=== PATIENT | male | born 1985 | race American Indian/Alaskan Native ===

== ENCOUNTER 2016-05-12 08:16 | Emergency (ER) | payer BC ==
[2016-05-12 08:51] VITALS: BP 138/90
[2016-05-12] MEDS ORDERED: NORCO 5/325 PO ONE (09:26)
--- NOTE | 2016-05-12 09:28 | XRay Report ---
Right hand 3 views: History: Injury. Findings: There is noted fracture neck of fifth metacarpal right hand. Also ossification noted adjacent to the ulnar aspect of proximal interphalangeal joint middle finger right hand probably related to old injury. Impression: Acute fracture neck of fifth metacarpal right hand. Additional findings as detailed above.
--- NOTE | 2016-05-12 10:37 | Emergency Department Report ---
HPI - General Chief Complaint: Extremity Injury, Upper Time Seen by Provider: 05/12/16 10:27 - HPI HPI: 30-year-old male presents to ED complaining of right hand pain times yesterday. Patient states he punched into a wall yesterday with his right hand. Patient states pain has gotten worse and some swelling noted on his right hand. Patient states pain is throbbing in constant in nature 8 out of 10 intensity pain. Patient able to move and no loss of sensation. Minimal swelling. Patient denies fevers/chills/nausea/vomiting/abdominal pain/chest pain/ shortness of breath/abdominal pain or any other problems. ED Past Medical Hx - Past Medical History Hx Hypertension: Yes Hx Arthritis: Yes Hx Psychiatric Treatment: Yes (ANXIETY) Additional medical history: High Cholesterol - Surgical History Additional Surgical History: T & A. BACK SURGERY L4/L5 - Social History Smoking Status: Former Smoker Substance Use Type: Alcohol, Prescribed - Medications Home Medications: Home Medications Medication Instructions Recorded Confirmed Last Taken Type ALPRAZolam [Xanax TAB] 1 mg PO BID PRN 05/12/16 05/12/16 05/12/16 07:00 History Gabapentin [Neurontin] 600 mg PO QPM 05/12/16 05/12/16 Unknown History Ibuprofen [Motrin] 800 mg PO Q8HR PRN #36 tablet 05/12/16 Unknown Rx Oxycodone HCl/Acetaminophen 1 each PO Q6HR PRN #20 tablet 05/12/16 Unknown Rx [Percocet 10/325 mg] ED Review of Systems ROS: Stated complaint: POSS R HAND FRACTURE Other details as noted in HPI Constitutional: denies: chills, fever Eyes: denies: eye pain, eye discharge, vision change ENT: denies: ear pain, throat pain Respiratory: denies: cough, shortness of breath, wheezing Cardiovascular: denies: chest pain, palpitations Endocrine: no symptoms reported Gastrointestinal: denies: abdominal pain, nausea, vomiting, diarrhea, constipation, hematemesis Genitourinary: denies: urgency, dysuria Musculoskeletal: arthralgia. denies: back pain, joint swelling Skin: denies: rash, lesions Neurological: denies: headache, weakness, paresthesias Psychiatric: denies: anxiety, depression Hematological/Lymphatic: denies: easy bleeding, easy bruising Physical Exam - Physical Exam Vital Signs: Vital Signs 05/12/16 08:40 Temperature 97.8 F Pulse Rate 94 H Respiratory 18 Rate Blood Pressure 138/90 O2 Sat by Pulse 100 Oximetry Physical Exam: GENERAL: Alert and oriented x3, no apparent distress, Normal Gait, atraumatic. HEAD: Head is normocephalic and a-traumatic. EYES: Extra ocular muscles are intact. Pupils are equal, round, and reactive to light and accommodation. EARS: symetrical, atraumatic, non tender, ear canal clear and moderate cerumen, tympanic membrance non inflamed. gross auditory nml bilaterally. NECK: Supple. Non edematous, No carotid bruits. No lymphadenopathy or thyromegaly. LUNGS: Symetrical with respiration, No wheezing, no rales or crackles, CTAB. HEART: S1, S2 present, regular rate and rhythm without murmur, no rubs, no gallops. ABDOMEN: No organomegaly was noted,Positive bowel sounds, soft, and non- distended. . Nontender to palpation on all Quadrants, NO CVA tenderness. EXTREMITIES/MUSCULOSKELETAL: No cyanosis, clubbing, rash, lesions or edema. Full ROM bilaterally. UE/LE Pulses 2+ bilaterally. LE and UE 5+ strength bilaterally. Anterior aspect of hand swelling over 5th metatarsal bone. Tenderness to palpation over fifth and fourth metatarsal bone. NEUROLOGIC: No focal Deficit, Cranial nerves II through XII are grossly intact. No loss of sensation, PSYCHIATRIC: Mood is congruent with affect, denies suicidal or homicidal ideations. SKIN: Warm and dry, No lesions, No ulceration or induration present. ED Course Vital Signs 05/12/16 08:40 Temperature 97.8 F Pulse Rate 94 H Respiratory 18 Rate Blood Pressure 138/90 O2 Sat by Pulse 100 Oximetry ED Medical Decision Making - Radiology Data Radiology results: report reviewed, image reviewed Fluoro Time In Minutes: Right hand 3 views: History: Injury. Findings: There is noted fracture neck of fifth metacarpal right hand. Also ossification noted adjacent to the ulnar aspect of proximal interphalangeal joint middle finger right hand probably related to old injury. Impression: Acute fracture neck of fifth metacarpal right hand. Additional findings as detailed above. Transcribed By: PTP Dictated By: SHARMIN JONES MD Electronically Authenticated By: SHARMIN JONES MD Signed Date/Time: 05/12/16 0921 - Medical Decision Making 30-year-old male presents with a closed fracture of the fifth minutes or carpal bone of the right hand. An x-ray shows a stated above- Discussed findings with patient. Patient received 1 tablet Percocet. Patient received 4 mg of morphine IM. Vital signs stable patient is in no acute or respiratory distress. Ulna gutter splint applied. Discussed the patient to follow up with orthopedic doctor as referred. Discussed rice protocols. Ulnar gutter splint applied to the patient's right hand. Discussed with patient to follow instructions given. Discussion to make appointment with ortho. Critical care attestation.: If time is entered above; I have spent that time in minutes in the direct care of this critically ill patient, excluding procedure time. ED Disposition Clinical Impression: Closed fracture of fifth metacarpal bone of right hand Qualifiers: Encounter type: initial encounter Metacarpal location: neck Fracture alignment : nondisplaced Qualified Code(s): S62.366A - Nondisplaced fracture of neck of fifth metacarpal bone, right hand, initial encounter for closed fracture Disposition: DISCHARGED TO HOME OR SELFCARE Is pt being admited?: No Does the pt Need Aspirin: No Condition: Stable Instructions: Finger Fracture (ED), Hand Fracture (ED), Boxer Fracture (ED) Prescriptions: Ibuprofen [Motrin] 800 mg PO Q8HR PRN #36 tablet PRN Reason: Pain Oxycodone HCl/Acetaminophen [Percocet 10/325 mg] 1 each PO Q6HR PRN #20 tablet PRN Reason: Pain Referrals: PRIMARY CARE, [Primary Care Provider] - 3-5 Days STEVEN FITZGERALD MD [Staff Physician] - 3-5 Days MAGGIE VELOZ MD [Staff Physician] - 3-5 Days Forms: Work/School Release Form(ED) Time of Disposition: 11:21
[2016-05-12] MEDS ORDERED: MORPHINE IM ONE (10:38)
== END 2016-05-12 11:34 | disposition home or self-care (01) ==
LOC: ED 08:16
DX: S62.366A Nondisplaced fracture of neck of fifth metacarpal bone, right hand, initial encounter for closed fracture (principal); I10 Essential (primary) hypertension; M19.90 Unspecified osteoarthritis, unspecified site; F41.9 Anxiety disorder, unspecified; E78.00 Pure hypercholesterolemia, unspecified; Z87.891 Personal history of nicotine dependence; W26.9XXA Contact with unspecified sharp object(s), initial encounter; Y93.89 Activity, other specified; Y99.9 Unspecified external cause status; Y92.89 Other specified places as the place of occurrence of the external cause
CPT/HCPCS: 29125; 73130; 96372; 99284; J2270

== ENCOUNTER 2020-08-30 03:07 | Emergency (ER) | payer BC, OTHER ==
[2020-08-30 03:24] VITALS: BP 150/88
[2020-08-30] MEDS ORDERED: oxyCODONE /ACETAMINOPHEN 5-325MG TAB PO ONE (05:49)
[2020-08-30] MEDS ORDERED: GABAPENTIN 300 MG CAP PO ONE (05:49)
[2020-08-30] MEDS ORDERED: IBUPROFEN 800 MG TAB PO ONE (05:49)
--- NOTE | 2020-08-30 05:51 | Emergency Department Report ---
ED Back Pain/Injury HPI - General Chief Complaint: Back Pain/Injury Stated Complaint: BACK PAIN Time Seen by Provider: 08/30/20 05:33 Source: patient Limitations: No Limitations - History of Present Illness Initial Comments: 34-year-old male with a past medical history of anxiety, arthritis, hypertension and chronic back pain status post lumbar fusion and discectomy in 2018. Pr esents to the ER today with complaints of flareup of his chronic pain. Patient has been in police custody since yesterday. He apparently was arrested yesterday and patient states that he has been in a holding cell sitting on a hard bench for several hours which has since flared up his lower back pain. He states that he takes Percocet, gabapentin and a muscle relaxer for his chronic back pain which is prescribed by his PCP, Dr. Small but the shelter is unable to give him his typical medications and so the symptom here to the ER. Patient states that the pain radiates down into his leg which is typical of his chronic back pain and he has his usual numbness and tingling in his legs nothing worse recently. He denies any associate abdominal pain. He denies any bowel or bladder incontinence. He denies any fever or chills. Patient states that he does have a primary care doctor appointment tomorrow but he just needs something for his pain now until he can get home to get his usual meds and see his doctor tomorrow. Complaint: back pain -: year(s) - Related Data Home Medications Medication Instructions Recorded Confirmed Last Taken ALPRAZolam [Xanax TAB] 1 mg PO BID PRN 05/12/16 05/12/16 05/12/16 07:00 Gabapentin [Neurontin] 600 mg PO QPM 05/12/16 05/12/16 Unknown Previous Rx's Medication Instructions Recorded Last Taken Type Ibuprofen [Motrin] 800 mg PO Q8HR PRN #36 tablet 05/12/16 Unknown Rx Oxycodone HCl/Acetaminophen 1 each PO Q6HR PRN #20 tablet 05/12/16 Unknown Rx [Percocet 10/325 mg] Allergies Allergy/AdvReac Type Severity Reaction Status Date / Time No Known Allergies Allergy Verified 05/12/16 08:43 ED Review of Systems ROS: Stated complaint: BACK PAIN Other details as noted in HPI Comment: All other systems reviewed and negative Constitutional: denies: chills, fever Eyes: denies: eye pain, eye discharge, vision change ENT: denies: ear pain, throat pain Respiratory: denies: cough, shortness of breath, wheezing Cardiovascular: denies: chest pain, palpitations, dyspnea on exertion, edema, syncope, paroxysmal nocturnal dyspnea Gastrointestinal: denies: abdominal pain, nausea, diarrhea, constipation, hematemesis, melena, hematochezia Genitourinary: denies: urgency, dysuria, frequency, hematuria, discharge, testicular pain, testicular mass Musculoskeletal: back pain Skin: denies: rash, lesions Neurological: numbness. denies: headache, weakness, paresthesias, confusion, abnormal gait Psychiatric: denies: anxiety, depression, auditory hallucinations, visual hallucinations, homicidal thoughts, suicidal thoughts Hematological/Lymphatic: denies: easy bleeding, easy bruising, swollen glands ED Past Medical Hx - Past Medical History Hx Hypertension: Yes Hx Arthritis: Yes Hx Psychiatric Treatment: Yes (ANXIETY) Additional medical history: High Cholesterol - Surgical History Past Surgical History?: Yes Additional Surgical History: T & A. BACK SURGERY L4/L5 - Social History Smoking Status: Former Smoker Substance Use Type: Alcohol, Prescribed - Medications Home Medications: Home Medications Medication Instructions Recorded Confirmed Last Taken Type ALPRAZolam [Xanax TAB] 1 mg PO BID PRN 05/12/16 05/12/16 05/12/16 07:00 History Gabapentin [Neurontin] 600 mg PO QPM 05/12/16 05/12/16 Unknown History Ibuprofen [Motrin] 800 mg PO Q8HR PRN #36 tablet 05/12/16 Unknown Rx Oxycodone HCl/Acetaminophen 1 each PO Q6HR PRN #20 tablet 05/12/16 Unknown Rx [Percocet 10/325 mg] ED Physical Exam - General Limitations: No Limitations General appearance: alert, in no apparent distress - Head Head exam: Present: atraumatic, normocephalic, normal inspection - Eye Eye exam: Present: normal appearance, PERRL, EOMI Pupils: Present: normal accommodation - ENT ENT exam: Present: normal exam, mucous membranes moist - Neck Neck exam: Present: normal inspection, full ROM - Respiratory Respiratory exam: Present: normal lung sounds bilaterally. Absent: respiratory distress, wheezes, rales, rhonchi - Cardiovascular Cardiovascular Exam: Present: regular rate, normal rhythm, normal heart sounds - GI/Abdominal GI/Abdominal exam: Present: soft. Absent: distended, tenderness, guarding, rebound - Back Exam Back exam: Present: full ROM, paraspinal tenderness (Mild diffuse paraspinal tenderness bilaterally in the lumbar area), vertebral tenderness (Mild diffuse l umbar tenderness), other (Healed surgical scar noted to the lumbar area) - Neurological Exam Neurological exam: Present: alert, oriented X3, CN II-XII intact, normal gait. Absent: motor sensory deficit - Psychiatric Psychiatric exam: Present: normal affect, normal mood - Skin Skin exam: Present: intact ED Course Vital Signs 08/30/20 03:23 Temperature 98.5 F Pulse Rate 70 Respiratory 12 Rate Blood Pressure 150/88 [Left] O2 Sat by Pulse 99 Oximetry ED Medical Decision Making - Medical Decision Making The patient presented with flareup of his typical chronic back pain. The patient is resting comfortably and feels better, is alert, talkative, interactive and in no distress. The patient is neurologically intact and is ambulatory in the ED. the patient has no fever, no bowel or bladder incontinence, no saddle anesthesia and is otherwise alert and well-appearing. His history, physical examination and diagnostic testing does not suggest the presence of acute spinal epidural abscess, acute epidural bleed, cauda equina syndrome, abdominal/thoracic aortic aneurysm, aortic dissection or other acute process requiring further testing, treatment or consultation in the emergency department. His vital signs have been stable. The patient condition is stable and appropriate for discharge. The patient will pursue further outpatient evaluation with the primary care physician. Critical care attestation.: If time is entered above; I have spent that time in minutes in the direct care of this critically ill patient, excluding procedure time. ED Disposition Clinical Impression: Chronic back pain Disposition: -01 TO HOME OR SELFCARE Is pt being admited?: No Does the pt Need Aspirin: No Condition: Stable Instructions: Chronic Back Pain, [id number] Additional Instructions: I recommend you keep your appointment with your primary care doctor tomorrow for any refills on your meds.. Continue to take your chronic medications as prescribed. Return to the ER if your symptoms changes or worsens in any way. Referrals: PRIMARY CARE, [Referring] - 3-5 Days Time of Disposition: 05:51
[2020-08-30] MEDS ORDERED: METAXALONE 800 MG TAB PO ONE (06:19)
== END 2020-08-30 06:15 | disposition home or self-care (01) ==
LOC: ED 03:07
DX: M54.6 Pain in thoracic spine (principal); G89.29 Other chronic pain; I10 Essential (primary) hypertension; M19.91 Primary osteoarthritis, unspecified site; Z98.890 Other specified postprocedural states; Z87.891 Personal history of nicotine dependence; Z79.1 Long term (current) use of non-steroidal anti-inflammatories (NSAID); Z79.899 Other long term (current) drug therapy
CPT/HCPCS: 99282